=== PATIENT | female | born 1990 | race Caucasian/White ===

== ENCOUNTER 2017-05-04 14:24 | Emergency (ER) | payer BC, OTHER ==
[2017-05-04 14:31] VITALS: BP 136/77
[2017-05-04] MEDS ORDERED: HYDROcodone/ACETAMIN 5-325 MG* 1 TAB PO ONE (14:58)
--- NOTE | 2017-05-04 18:04 | ED ---
Skin Complaint - HPI Summary HPI Summary: Patient presents to the ED with skin avulsion of the left thumb by a cigarette paper tester. Pain is 8/10, constant and throbbing. Denies numbness, tingling. Denies temperature changes. She is otherwise healthy. She denies any other pain. Denies blood thinners. Pain is non radiating and discretely located over the avulsion. - History of Current Complaint Chief Complaint: EDExtremityUpper Time Seen by Provider: 05/04/17 14:40 Stated Complaint: LT THUMB LAC Hx Obtained From: Patient Onset/Duration: Started Hours Ago Skin Exposure Onset/Duration: Hours Ago Timing: Constant Onset Severity: Moderate Current Severity: Moderate Pain Intensity: 7 Pain Scale Used: 0-10 Numeric Skin Location: Hand Aggravating Symptom(s): Nothing Alleviating Symptom(s): Nothing Associated Signs & Symptoms: Negative Related History: Trauma - Allergy/Home Medications Allergies/Adverse Reactions: Allergies Allergy/AdvReac Type Severity Reaction Status Date / Time No Known Allergies Allergy Verified 05/04/17 14:31 PMH/Surg Hx/FS Hx/Imm Hx Previously Healthy: Yes Sensory History: Reports: Hx Contacts or Glasses - no contact in left eye Opthamlomology History: Reports: Hx Contacts or Glasses - no contact in left eye - Immunization History Date of Tetanus Vaccine: UTD Date of Influenza Vaccine: unk Hx Pertussis Vaccination: No Immunizations Up to Date: Yes Infectious Disease History: No Infectious Disease History: Denies: Traveled Outside the [place] in Last 30 Days - Social History Occupation: Employed Full-time Lives: With Family Alcohol Use: None Hx Substance Use: No Substance Use Type: Reports: None Hx Tobacco Use: Yes Smoking Status (MU): Current Some Day Smoker Review of Systems Constitutional: Negative Negative: Fever, Chills, Fatigue Eyes: Negative Cardiovascular: Negative Respiratory: Negative Genitourinary: Negative Positive: no symptoms reported, see HPI Musculoskeletal: Negative Positive: Other - avulsion to the left thumb Neurological: Negative All Other Systems Reviewed And Are Negative: Yes Physical Exam Triage Information Reviewed: Yes Vital Signs On Initial Exam: Initial Vitals Temp Pulse Resp BP Pulse Ox 98.7 F 80 16 136/77 100 05/04/17 14:27 05/04/17 14:27 05/04/17 14:27 05/04/17 14:27 05/04/17 14:27 Vital Signs Reviewed: Yes Appearance: Positive: Well-Appearing, Well-Nourished, Signs of Trauma Skin: Positive: Skin Color Reflects Adequate Perfusion, Other - avulsion to the distal tip of the left thumb sparing the nail Eyes: Positive: EOMI, ANALISA, Conjunctiva Clear Respiratory/Lung Sounds: Positive: Clear to Auscultation, Breath Sounds Present Cardiovascular: Positive: Normal, RRR, Pulses are Symmetrical in both Upper and Lower Extremities Musculoskeletal: Positive: Normal, Strength/ROM Intact Neurological: Positive: Sensory/Motor Intact, Alert, Oriented to Person Place, Time, Speech Normal Psychiatric: Positive: Affect/Mood Appropriate - Pilot Coma Scale Coma Scale Total: 15 Diagnostics - Vital Signs Vital Signs Temp Pulse Resp BP Pulse Ox 05/04/17 14:27 98.7 F 80 16 136/77 100 - Laboratory Lab Statement: Any lab studies that have been ordered have been reviewed, and results considered in the medical decision making process. Course/Dx - Course Course Of Treatment: avulsion to the distal tip of the left thumb sparing the nail. no bone involvment. full ROM. Denies neuro symptoms. occlusive gauze wrapped with tube gauze overlying. She is given care instructions and is OK for discharge. No xray obtained d/t superficiality of wound. - Diagnoses Provider Diagnoses: Skin avulsion Discharge - Discharge Plan Condition: Stable Disposition: HOME Prescriptions: Hydrocodone/Acetamin 10/325(NF [[place] 10/325 (NF)] 1 tab PO Q6H #12 tab MDD 4 Patient Education Materials: Skin Avulsion (ED) Referrals: Jonathan Patterson MD [Primary Care Provider] - Additional Instructions: Ibuprofen 600mg three times daily For pain not well controlled with ibuprofen, take the NORCO as needed Medicated gauze - change out daily with overlying gauze
== END 2017-05-04 15:29 | disposition home or self-care (01) ==
LOC: ED 14:24
DX: T14.8XXA Other injury of unspecified body region, initial encounter (principal); W45.8XXA Other foreign body or object entering through skin, initial encounter; Y93.9 Activity, unspecified; Y92.9 Unspecified place or not applicable; Z72.0 Tobacco use
CPT/HCPCS: 99282